=== PATIENT | female | born 1950 | race American Indian/Alaskan Native ===

== ENCOUNTER 2017-08-15 10:23 | Outpatient (CLI) | payer MEDICARE ==
--- NOTE | 2017-08-16 09:36 | Mammography Report ---
Screening mammogram: Routine views demonstrate heterogeneously dense fibroglandular pattern and he generally symmetric distribution bilaterally. In the upper outer right breast there is a circumscribed lobulated nodule. There is a focal grouping of calcifications in the superior right breast. In the medial left breast there is another focal grouping of calcifications. CAD used. Impression: Bilateral asymmetries. Recommendation: Magnification views of the bilateral breast calcifications. The lobulated nodule in the right will also be included in the additional images of the right breast calcifications. Ultrasound is needed. We are going to attempt to obtain the patient's prior mammograms. If successful a comparison report will be issued. BI-RADS CATEGORY: 0 = Needs additional imaging evaluation ACR BI-RADS MAMMOGRAPHIC CODES: 0 = Needs additional imaging evaluation; 1 = Negative; 2 = Benign; 3 = Probably benign; 4 = Suspicious; 5 = Malignant; 6 = Known biopsy-proven malignancy COMMENT: 1. Dense breast tissue, i.e., adenosis, fibrocystic changes, etc., may obscure an underlying neoplasm. 2. Approximately 10% of cancers are not detected with mammography. 3. A negative mammography report should not delay biopsy if a clinically suspicious mass is present.
== END 2017-08-15 10:24 | disposition home or self-care (01) ==
LOC: SPVWC 10:23
PROVIDERS: ATTEND Hospitalist
DX: Z12.31 Encounter for screening mammogram for malignant neoplasm of breast (principal)
CPT/HCPCS: 77067

== ENCOUNTER 2017-09-10 09:30 | Outpatient (CLI) | payer MEDICARE ==
--- NOTE | 2017-09-10 16:46 | Ultrasound Report ---
BILATERAL DIGITAL DIAGNOSTIC MAMMOGRAM and BILATERAL BREAST ULTRASOUND: 09/10/17 09:30:00 CLINICAL: Recalled for bilateral asymmetries and calcifications. COMPARISON:08/15/17 screening FINDINGS: Bilateral true lateral and spot magnification views were performed. A few low-density right upper calcifications at 12 o'clock with no suspicious forms. A circumscribed oval asymmetry persists on spot images in the upper right breast. A group of left lower inner calcifications appear to be benign vascular calcifications on the lateral view but are more widely dispersed on a CC mag view. A partially circumscribed oval 1.2 cm mass is identified in the vicinity of the calcifications. Ultrasound of the right breast demonstrated an oval benign cyst at 12 o'clock 6 cm from the nipple measuring 6 x 4 x 2 mm. It appears to correlate with the mammographic density. Ultrasound of the lower inner left breast demonstrated relatively large calcifications that appear to correlate with the mammographic calcifications at 8 o'clock 7 cm from the nipple. A distinct mass is not identified on ultrasound. A benign cyst at 9 o'clock 7 cm from the nipple measures 1.0 x 0.4 x 0.2 cm. IMPRESSION: Probably benign left calcifications and a probably benign circumscribed 1.2 cm mammographic mass in the lower inner quadrant of the left breast with no ultrasound correlate. A benign cyst of the right breast at 12 o'clock. BI-RADS CATEGORY: 3 - - Probably Benign RECOMMENDATION: Six month followup left mammogram with magnification views and left breast ultrasound if needed. Recommend routine screening of the right breast. ACR BI-RADS MAMMOGRAPHIC CODES: 0 = Needs additional imaging evaluation; 1 = Negative; 2 = Benign; 3 = Probably benign; 4 = Suspicious; 5 = Malignant; 6 = Known biopsy-proven malignancy COMMENT: 1. Dense breast tissue, i.e., adenosis, fibrocystic changes, etc., may obscure an underlying neoplasm. 2. Approximately 10% of cancers are not detected with mammography. 3. A negative mammography report should not delay biopsy if a clinically suspicious mass is present. COMMENT: Patient follow-up letters are generated via our [employer] application.
== END 2017-09-10 09:31 | disposition home or self-care (01) ==
LOC: SPVWC 09:30
PROVIDERS: ATTEND Hospitalist
DX: N60.01 Solitary cyst of right breast (principal); R92.8 Other abnormal and inconclusive findings on diagnostic imaging of breast; I10 Essential (primary) hypertension; J44.9 Chronic obstructive pulmonary disease, unspecified
CPT/HCPCS: 77066

== ENCOUNTER 2018-12-11 07:33 | Day surgery (SDC) | payer MEDICARE ==
[2018-12-11] MEDS: AK-Dilate OS SCH ×3 (08:59→09:35)
[2018-12-11] MEDS ORDERED: CATAPRES PO NR (09:03)
[2018-12-11] MEDS: MYDRIACYL OS SCH ×3 (09:07→09:46)
--- NOTE | 2018-12-11 09:07 | Anesthesia Consultation ---
Anesthesia Consult and Med Hx Date of service: 12/11/18 - Airway Anesthetic Teeth Evaluation: Dentures (upper) ROM Head & Neck: Adequate Mental/Hyoid Distance: Adequate Mallampati Class: Class II Intubation Access Assessment: Probably Good - Pulmonary Exam CTA: Yes - Cardiac Exam Cardiac Exam: RRR - Pre-Operative Health Status ASA Pre-Surgery Classification: ASA3 Proposed Anesthetic Plan: MAC - Pulmonary Hx Smoking: No Hx Asthma: Yes (last inhaler use 3 months ago) Hx Respiratory Symptoms: No Hx Sleep Apnea: No - Cardiovascular System Hx Hypertension: Yes (took nobivolol today but not clonidine. ) Hx Heart Attack/AMI: No (>4 mets functional capacity) Hx Percutaneous Transluminal Coronary Angioplasty (PTCA): No Hx Cardia Arrhythmia: Yes (hx atrial tachycardia) Hx Pacemaker: No Hx Internal Defibrillator: No - Central Nervous System Hx Neuromuscular Disorder: No Hx Seizures: No CVA: Yes (dx complicated migraine but patient believes was stroke several yrs ago) - Gastrointestinal Hx Gastroesophageal Reflux Disease: No - Endocrine Hx Renal Disease: No Hx Liver Disease: No Hx Insulin Dependent Diabetes: No Hx Non-Insulin Dependent Diabetes: No Hx Thyroid Disease: No - Other Systems Hx Obesity: Yes - Additional Comments Anesthesia Medical History Comments: No hx anesthetic complications. BP elevated on arrival. Patient not take clonidine (usually takes prn only). Cardiology note from 08/2018 on chart states patient was prescribed valsartan-HCTZ however patient reports that she did not start this medication because it was denied by insurance. Also noted normal EF and LVH on recent TTE. Asymptomatic today. Will give home dose clonidine in preop.
--- NOTE | 2018-12-11 09:07 | Anesthesia Day of Surgery ---
Anesthesia Day of Surgery - Day of Surgery Patient Examined: Yes Patient H&P Reviewed: Yes Patient is NPO: Yes Beta Blockers: Yes
[2018-12-11] MEDS: VIGAMOX OS SCH ×3 (09:13→09:38)
[2018-12-11] MEDS: TETRACAINE 0.5% OS PRN ×4 (09:18→09:55)
[2018-12-11] MEDS ORDERED: DIAMOX PO NR ×2 (09:27→11:06)
[2018-12-11] MEDS ORDERED: PRED FORTE 1% OS NR (10:00)
[2018-12-11] MEDS ORDERED: SUBLIMAZE ONE (10:27)
[2018-12-11] MEDS ORDERED: VERSED ONE (10:27)
[2018-12-11] MEDS ORDERED: NACL P/F VIAL (10 ML) 10 ML ONE (10:33)
--- NOTE | 2018-12-11 10:45 | Operative Report ---
Operative Report Operative Report: PATIENT'S NAME: DATE OF : DATE OF SURGERY: 12/11/2018 PREOPERATIVE DIAGNOSIS: Cataract left eye POSTOPERATIVE DIAGNOSIS: Same OPERATIVE PROCEDURE: Phacoemulsification with intraocular lens implantation, left eye SURGEON: Yolanda Yousif M.D. TRANSFER AND PUMPHOUSE OPERATOR SURGEON: Michelle Lens: [id number] 21.0 D ANESTHESIA: Monitored anesthesia care in combination with topical and intracameral anesthesia because of the established specific risk of reflux, arrhythmias, or anxiety attacks associated with ocular manipulation, as well as the difficulty of the engine builder to manage such potentially catastrophic events while simultaneously attempting to complete the surgical procedure and was deemed necessary for the patient's safety to have an Dry Charge Process Attendant present during the procedure whenever possible. An Dry Charge Process Attendant was utilized to regulate the intravenous sedation of the patient so the patient was cooperative yet not asleep in order for the patient to successfully maintain fixation of the eye on the operating light of the microscope. COMPLICATIONS: No surgical complications No blood loss. ALLERGIES: Aspirin NSAID PROGNOSIS: Excellent INDICATIONS FOR SURGERY: The patient is undergoing surgery in the hopes of eliminating or improving these visual difficulties. PROCEDURE: After arriving at the surgery center, the patient was given topical anesthetic and dilating drops, as noted in the record. The patient was then taken into the operating room and given more anesthetic drops. The eyelids, lashes, and lid margins were scrubbed with Betadine solution, and the patient was draped. The Nurse Dry Charge Process Attendant administered IV sedation and monitored the patient during the procedure. The eye was then fixated with a 0.12, and a stab incision was made in the peripheral clear cornea into the anterior chamber. This was made on my left side. Viscoelastic was next used to fill the anterior chamber. The eye was once again fixated with the 0.12 forceps and a keratome was used make an incision in clear cornea peripherally on my right hand side temporally. The capsule forceps were used to open the central anterior capsule and then make a continuous round capsulotomy. Hydrodissection was carried out utilizing a cannula and balanced salt solution to delineate the cortical material from the capsule and the nucleus from the cortical material. The phaco tip was introduced into the eye and used to remove the anterior cortical material in the area of the capsulotomy. Then the phaco tip was buried into the nucleus, and a chopping instrument was introduced into the eye and used to provide countertraction in the nucleus between this instrument and the phaco tip fracturing the nucleus. This procedure was repeated multiple times, providing multiple small segments of the lens, and then the phaco tip was used to remove each of these segments. An I/A tip was then used to remove the remaining cortex. The anterior chamber was refilled with viscoelastic. An one-piece, acrylic intraocular lens was then placed into an inserting cartridge. The tip of the inserting cartridge was introduced into the keratome incision and into the anterior chamber. The implant was gently advanced through the cartridge and into the eye, where it unfolded, and both haptics were placed in the capsular bag, where it centered nicely and appeared to be well fixated. After placement of the intraocular lens, the I~and~A handpiece was placed back into the eye and used to remove the viscoelastic, including viscoelastic that was behind the optic of the intraocular lens. The anterior chamber was then filled with balanced salt solution, and hydration of the wound was used to cause swelling of the wound and more appropriate watertight closure. When the wound was found to be firm, the patient was asked to comment on how bright the light was. If there was no light perception at all or if the light was substantially dimmer than during the rest of the surgery, the amount of fluid in the eye was decompressed to lower the intraocular pressure until the patient could see the bright light again. This was done to avoid any damage or decreased blood flow to the optic nerve. MEDICATIONS APPLIED AT END OF SURGERY: One drop of Pred Forte and Vigamox The patient was given a shield to wear at night and was instructed not to rub or push on the eye. DISCHARGE SUMMARY: The patient was released in stable condition. The patient and those with the patient were given a written sheet of postoperative instructions and counseling on any abnormal laboratory studies. The patient is to see us tomorrow for follow-up in the office and is to call immediately for any difficulties. Yolanda Yousif M.D. Date
--- NOTE | 2018-12-11 10:46 | Short Stay Summary ---
Short Stay Documentation Date of service: 12/11/18 - History H&P: obtained from office - Allergies and Medications Current Medications: Allergies aspirin Allergy (Verified 12/09/18 11:58) Anaphylaxis NSAIDS (Non-Steroidal Anti-Inflamma Allergy (Verified 12/09/18 11:58) Anaphylaxis Home Medications Medication Instructions Recorded Confirmed Last Taken Type Clonidine HCl [Kapvay] 0.1 mg PO DAILY PRN 12/09/18 12/11/18 12/03/18 History Nebivolol HCl [Bystolic] 10 mg PO DAILY 12/09/18 12/11/18 12/11/18 06:00 History Pregabalin [Lyrica] 150 mg PO PRN 12/09/18 12/11/18 1 Month Ago History ~11/10/18 tiZANidine [Zanaflex 4mg TAB] 4 mg PO PRN 12/09/18 12/11/18 1 Month Ago History ~11/10/18 traMADol [Ultram] 50 mg PO TID PRN 12/09/18 12/11/18 12/11/18 06:00 History Active Medications Clonidine HCl (Catapres) 0.1 mg PO ONCE NR Stop: 12/11/18 13:00 Last Admin: 12/11/18 09:50 Dose: 0.1 mg Documented by: Moxifloxacin HCl (Vigamox) 1 drops OS Q5M EMETERIO Stop: 12/11/18 23:59 Last Admin: 12/11/18 09:38 Dose: 1 drops Documented by: Phenylephrine HCl (Ak-Dilate) 1 drops OS Q5M EMETERIO Stop: 12/11/18 23:59 Last Admin: 12/11/18 09:35 Dose: 1 drops Documented by: Prednisolone Acetate (Pred Forte 1%) 1 drops OS ONCE NR Stop: 12/11/18 13:00 Tetracaine HCl (Tetracaine 0.5%) 1 drops OS Q5M PRN PRN Reason: Anesthesia Stop: 12/11/18 23:59 Last Admin: 12/11/18 09:55 Dose: 1 drops Documented by: Tropicamide (Mydriacyl) 1 drops OS Q5M EMETERIO Stop: 12/11/18 23:59 Last Admin: 12/11/18 09:46 Dose: 1 drops Documented by: - Brief post op/procedure progress note Date of procedure: 12/11/18 Pre-op diagnosis: left cataract Post-op diagnosis: same Procedure: Phacoemulsification with intraocular lens insertion left eye Anesthesia: MAC, local Surgeon: ROLDAN HENRIQUEZ Estimated blood loss: none Pathology: none Condition: stable - Disposition Condition at discharge: Good Disposition: DC-01 TO HOME OR SELFCARE - Discharge Diagnoses (1) Cortical age-related cataract of left eye Status: Resolved Short Stay Discharge Plan Follow up with: CUBA WHITE MD [Primary Care Provider] - 7 Days
[2018-12-11 11:31] VITALS: BP 150/94
--- NOTE | 2018-12-11 13:12 | Post Anesthesia Evaluation ---
- Post Anesthesia Evaluation Patient Participated: Yes Airway Patent: Yes Stable Respiratory Function: Yes Nausea/Vomiting: No Temp > 96.8F: Yes Pain Manageable: Yes Adequeate Hydration: Yes Anesthesia Complications: No
== END 2018-12-11 11:35 | disposition home or self-care (01) ==
LOC: OR 07:33
DX: H25.012 Cortical age-related cataract, left eye (principal); J45.909 Unspecified asthma, uncomplicated; I10 Essential (primary) hypertension; I25.10 Atherosclerotic heart disease of native coronary artery without angina pectoris; M19.90 Unspecified osteoarthritis, unspecified site; G43.909 Migraine, unspecified, not intractable, without status migrainosus; E66.9 Obesity, unspecified; Z88.8 Allergy status to other drugs, medicaments and biological substances; Z79.899 Other long term (current) drug therapy; Z90.49 Acquired absence of other specified parts of digestive tract; Z90.710 Acquired absence of both cervix and uterus; Z98.890 Other specified postprocedural states; Z98.891 History of uterine scar from previous surgery; Z68.32 Body mass index [BMI] 32.0-32.9, adult
CPT/HCPCS: 66984; J2250; J3010; V2632